=== PATIENT | female | born 1965 | race Caucasian/White ===

== ENCOUNTER 2020-10-21 00:01 | Inpatient (IN) | payer BC ==
[2020-10-21] MEDS ORDERED: Fentanyl 100 MCG/2 ML VIAL ONE ×3 (00:31→02:01)
[2020-10-21 01:08] LABS: ALT (SGPT) 63 U/L (8-55); AST (SGOT) 139 U/L (5-34); Albumin 4.7 g/dL (3.5-5.0); Alkaline Phosphatase 51 U/L (40-110); Anion Gap 26 mmol/L (10-20); BUN (Urea Nitrogen) 10 mg/dL (9.8-20.1); Bilirubin, Total 0.5 mg/dL (0.2-1.2); Calc. Creatinine Clearance 0 mL/min (70-130); Calcium 10.3 mg/dL (7.8-10.44); Carbon Dioxide 21 mmol/L (22-29); Chloride 95 mmol/L (98-107); Glucose 90 mg/dL (70-105); Potassium 3.8 mmol/L (3.5-5.1); Protein, Total 7.7 g/dL (6.0-8.3); Sodium 138 mmol/L (136-145)
[2020-10-21 01:15] LABS: Hemoglobin 12.2 g/dL (12.0-15.5); Mean Corpuscular HGB CONC 35.1 g/dL (32.0-36.0); Mean Corpuscular Hemoglobin 36.3 pg (27.0-33.0); Mean Corpuscular Volume 103.6 fl (81.6-98.3); Mean Platelet Volume 10.2 fl (7.4-10.4); Platelet Count 182 10x3/uL (150-450); RBC Distribution Width 12.6 % (11.5-14.5); Red Blood Cell (RBC) Count 3.36 10x6/uL (3.90-5.03); White Blood Cell (WBC) Count 7.7 10x3/uL (3.5-10.5)
[2020-10-21 01:39] LABS: Acetaminophen Less than 6.0 mcg/mL (10.0-30.0); Salicylate Less than 8.0 mg/dL (15.0-30.0)
[2020-10-21 01:43] LABS: Alcohol 409 mg/dL (Less than 10)
[2020-10-21 01:47] LABS: Band 3 % (5-11); Eosinophils 5 % (0-10); Lymphocytes 32 % (21-51); Monocytes 9 % (0-10); Reactive Lymphocytes 7 % (0-10)
[2020-10-21 01:48] LABS: Neutrophil 44 % (42-75)
[2020-10-21 01:49] LABS: Platelet Morphology Comment Appears Adequate
[2020-10-21 01:50] LABS: MDiff Complete? YES; Manual Diff?? YES
[2020-10-21 01:51] LABS: Macrocytosis MODERATE=16-30 cells (100X) (0-5/hpf)
[2020-10-21 01:52] LABS: Anisocytosis SLIGHT = 6-15 cells (100X) (0-5/hpf)
[2020-10-21] MEDS ORDERED: Senokot S 8.6-50 MG TAB PO PRN (02:20)
[2020-10-21] MEDS ORDERED: Calcium Carbonate 500 MG ChewTAB PO PRN (02:20)
[2020-10-21] MEDS ORDERED: Morphine 4 MG/ML VIAL SLOW IVP PRN (03:01)
[2020-10-21 03:19] LABS: SARS-CoV-2 NAA Rapid Test Not Detected (NotDetected)
[2020-10-21 03:56] VITALS: BMI 21.2
[2020-10-21] MEDS ORDERED: Multivitamins, Adult 10 ML, Folic Acid 1 MG in Dextrose 5 %-0.45 % NaCl 1,000 ML IV SCH (04:00)
[2020-10-21] MEDS ORDERED: Thiamine HCl 200 MG/2 ML VIAL SLOW IVP SCH (04:00)
[2020-10-21] MEDS: Lactated Ringer's 1,000 ML IV SCH ×3 (04:03→18:39)
[2020-10-21] MEDS: Morphine 4 MG/ML VIAL SLOW IVP PRN ×5 (04:04→22:38)
[2020-10-21] MEDS ORDERED: Thiamine HCl 200 MG/2 ML VIAL ONE (04:31)
[2020-10-21] MEDS ORDERED: Multivit, Adult Inj 10 ML VIAL ONE (04:32)
[2020-10-21] MEDS: Calcium Carbonate 500 MG ChewTAB PO SCH (08:19)
[2020-10-21] MEDS: Cholecalciferol 1,000 UNITS (25 MCG) TAB PO SCH (08:20)
[2020-10-21] MEDS: Famotidine/PF 20 mg/2ml Vial SLOW IVP SCH ×2 (08:20→20:15)
[2020-10-21 08:21] LABS: #Eosinphils 0.1 10x3/uL (0.0-0.5); #Monocytes 0.6 10x3/uL (0.0-1.1); #Neutrophils 3.7 10x3/uL (1.5-8.4); %Basophils 0.6 % (0.0-2.0); %Eosinophils 1.5 % (0.0-6.0); %Lymphocytes 34.3 % (18.0-47.0); %Monocytes 9.4 % (0.0-10.0); %Neutrophils 53.8 % (40.0-75.0); Hemoglobin 9.4 g/dL (12.0-15.5); Mean Corpuscular HGB CONC 33.9 g/dL (32.0-36.0); Mean Corpuscular Hemoglobin 36.2 pg (27.0-33.0); Mean Corpuscular Volume 106.5 fl (81.6-98.3); Mean Platelet Volume 9.6 fl (7.4-10.4); Platelet Count 129 10x3/uL (150-450); RBC Distribution Width 12.8 % (11.5-14.5); White Blood Cell (WBC) Count 6.8 10x3/uL (3.5-10.5)
[2020-10-21] MEDS: Enoxaparin Sodium 40 MG/0.4 ML SYRINGE SC SCH (08:21)
[2020-10-21 08:36] LABS: ALT (SGPT) 48 U/L (8-55); AST (SGOT) 94 U/L (5-34); Albumin 3.7 g/dL (3.5-5.0); Alcohol 232 mg/dL (Less than 10); Alkaline Phosphatase 42 U/L (40-110); Anion Gap 21 mmol/L (10-20); BUN (Urea Nitrogen) 7 mg/dL (9.8-20.1); Bilirubin, Total 0.5 mg/dL (0.2-1.2); CK (CPK) 107 U/L (29-168); Calc. Creatinine Clearance 97 mL/min (70-130); Calcium 8.8 mg/dL (7.8-10.44); Carbon Dioxide 22 mmol/L (22-29); Chloride 102 mmol/L (98-107); Globulin 2.1 g/dL (2.4-3.5); Glucose 114 mg/dL (70-105); Potassium 3.8 mmol/L (3.5-5.1); Protein, Total 5.8 g/dL (6.0-8.3); Sodium 141 mmol/L (136-145)
[2020-10-21 09:08] LABS: Magnesium 0.8 mg/dL (1.6-2.6)
[2020-10-21 09:12] LABS: Macrocytosis SLIGHT = 6-15 cells (100X) (0-5/hpf); Platelet Morphology Comment Appears Decreased
[2020-10-21] MEDS ORDERED: CEFAZOLIN 2 GM in Premix Bag 1 BAG IVPB SCH (09:15)
[2020-10-21] MEDS: Magnesium 2 GM/50 ML 2 GM in Premix Bag 1 BAG IVPB SCH ×2 (11:46→13:57)
[2020-10-21 17:35] LABS: Vitamin D, 25 Hydroxy 48.8 ng/ml (> 30.0)
[2020-10-21] MEDS: Lorazepam 2 MG/ML VIAL SLOW IVP PRN (19:43)
[2020-10-21] MEDS: Ondansetron PF 4 MG/2 ML Vial IVP PRN (22:44)
[2020-10-22] MEDS: Lactated Ringer's 1,000 ML IV SCH ×3 (02:27→18:31)
[2020-10-22] MEDS: Multivitamins, Adult 10 ML, Folic Acid 1 MG, Thiamine HCl 100 MG in Dextrose 5 %-0.45 %... IV SCH (05:04)
[2020-10-22] MEDS: Morphine 4 MG/ML VIAL SLOW IVP PRN ×4 (05:05→19:37)
[2020-10-22 05:52] LABS: Anion Gap 21 mmol/L (10-20); Globulin 2.2 g/dL (2.4-3.5)
[2020-10-22 05:56] LABS: #Eosinphils 0.1 10x3/uL (0.0-0.5); #Monocytes 0.4 10x3/uL (0.0-1.1); #Neutrophils 2.7 10x3/uL (1.5-8.4); %Basophils 0.7 % (0.0-2.0); %Eosinophils 2.7 % (0.0-6.0); %Monocytes 9.2 % (0.0-10.0); %Neutrophils 61.2 % (40.0-75.0); Hemoglobin 9.4 g/dL (12.0-15.5); Mean Corpuscular HGB CONC 34.2 g/dL (32.0-36.0); Mean Corpuscular Volume 108.3 fl (81.6-98.3); Mean Platelet Volume 10.7 fl (7.4-10.4); Platelet Count 113 10x3/uL (150-450); RBC Distribution Width 12.8 % (11.5-14.5); Red Blood Cell (RBC) Count 2.54 10x6/uL (3.90-5.03); White Blood Cell (WBC) Count 4.5 10x3/uL (3.5-10.5)
[2020-10-22 06:00] LABS: ALT (SGPT) 40 U/L (8-55); AST (SGOT) 69 U/L (5-34); Albumin 3.8 g/dL (3.5-5.0); Alkaline Phosphatase 44 U/L (40-110); BUN (Urea Nitrogen) 6 mg/dL (9.8-20.1); Bilirubin, Total 0.9 mg/dL (0.2-1.2); Calc. Creatinine Clearance 82 mL/min (70-130); Calcium 8.7 mg/dL (7.8-10.44); Carbon Dioxide 21 mmol/L (22-29); Chloride 97 mmol/L (98-107); Glucose 97 mg/dL (70-105); Magnesium 1.1 mg/dL (1.6-2.6); Sodium 135 mmol/L (136-145)
[2020-10-22] MEDS: Calcium Carbonate 500 MG ChewTAB PO SCH (10:24)
[2020-10-22] MEDS: Famotidine/PF 20 mg/2ml Vial SLOW IVP SCH ×2 (10:24→21:10)
[2020-10-22] MEDS: Cholecalciferol 1,000 UNITS (25 MCG) TAB PO SCH (10:24)
[2020-10-22] MEDS ORDERED: Magnesium 2 GM/50 ML 2 GM in Premix Bag 1 BAG IVPB SCH (11:00)
[2020-10-22] MEDS ORDERED: Dexamethasone 20 MG/5 ML VIAL ONE (15:42)
[2020-10-22] MEDS ORDERED: Fentanyl 100 MCG/2 ML VIAL ONE (15:42)
[2020-10-22] MEDS ORDERED: PROPOFOL 20 ML ONE (15:42)
[2020-10-22] MEDS ORDERED: Lidocaine 1% PF 5 ML VIAL ONE (15:42)
[2020-10-22] MEDS ORDERED: Ondansetron PF 4 MG/2 ML Vial ONE (15:42)
[2020-10-22] MEDS ORDERED: Rocuronium Bromide 10 MG/ML (10ML VIAL) ONE (15:42)
[2020-10-22] MEDS ORDERED: CEFAZOLIN 1 GM VIAL ONE (16:09)
[2020-10-22] MEDS ORDERED: Midazolam HCl 2 mg/2 ml Vial ONE (16:23)
[2020-10-22] MEDS ORDERED: Glycopyrrolate 0.2 MG/ML 5 ML SYRINGE ONE (16:38)
[2020-10-22] MEDS ORDERED: SUGAMMADEX SODIUM 500 MG/5 ML VIAL ONE (17:00)
[2020-10-22] MEDS: CEFAZOLIN 2 GM in Premix Bag 1 BAG IVPB SCH (21:19)
[2020-10-23] MEDS: Lorazepam 2 MG/ML VIAL SLOW IVP PRN ×2 (03:05→23:32)
[2020-10-23] MEDS: Multivitamins, Adult 10 ML, Folic Acid 1 MG, Thiamine HCl 100 MG in Dextrose 5 %-0.45 %... IV SCH (03:08)
[2020-10-23] MEDS: Lactated Ringer's 1,000 ML IV SCH ×3 (04:30→20:02)
[2020-10-23] MEDS ORDERED: Lorazepam 2 MG/ML VIAL SLOW IVP SCH (05:00)
[2020-10-23] MEDS: CEFAZOLIN 2 GM in Premix Bag 1 BAG IVPB SCH (05:50)
[2020-10-23] MEDS: Cholecalciferol 1,000 UNITS (25 MCG) TAB PO SCH (08:59)
[2020-10-23] MEDS: Calcium Carbonate 500 MG ChewTAB PO SCH (08:59)
[2020-10-23] MEDS: Morphine 4 MG/ML VIAL SLOW IVP PRN (09:00)
[2020-10-23] MEDS: Famotidine/PF 20 mg/2ml Vial SLOW IVP SCH ×2 (09:00→20:38)
[2020-10-23] MEDS ORDERED: traMADol HCl 50 MG TAB PO PRN (17:02)
[2020-10-24] MEDS: Lactated Ringer's 1,000 ML IV SCH ×2 (07:49→13:00)
[2020-10-24] MEDS: Cholecalciferol 1,000 UNITS (25 MCG) TAB PO SCH (09:04)
[2020-10-24] MEDS: Calcium Carbonate 500 MG ChewTAB PO SCH (09:04)
[2020-10-24] MEDS: Famotidine/PF 20 mg/2ml Vial SLOW IVP SCH ×2 (09:04→23:26)
[2020-10-24] MEDS: Enoxaparin Sodium 40 MG/0.4 ML SYRINGE SC SCH (09:05)
[2020-10-24] MEDS: Acetaminophen 325 MG TAB PO PRN ×2 (10:39→23:27)
[2020-10-24 12:02] LABS: Anion Gap 12 mmol/L (10-20); BUN (Urea Nitrogen) 4 mg/dL (9.8-20.1); Calc. Creatinine Clearance 107 mL/min (70-130); Calcium 8.8 mg/dL (7.8-10.44); Carbon Dioxide 29 mmol/L (22-29); Chloride 99 mmol/L (98-107); Glucose 96 mg/dL (70-105); Potassium 3.2 mmol/L (3.5-5.1); Sodium 137 mmol/L (136-145)
[2020-10-24 12:10] LABS: Magnesium 0.9 mg/dL (1.6-2.6)
[2020-10-24] MEDS ORDERED: Potassium Chloride 20 MEQ TAB PO SCH (12:45)
[2020-10-24] MEDS ORDERED: Magnesium Sulfate 3 GM in Sodium Chloride 0.9% 100 ML IVPB SCH (13:00)
[2020-10-25] MEDS: Lactated Ringer's 1,000 ML IV SCH ×3 (02:03→12:32)
[2020-10-25 06:05] LABS: Anion Gap 13 mmol/L (10-20); BUN (Urea Nitrogen) Less than 4 mg/dL (9.8-20.1); Calc. Creatinine Clearance 107 mL/min (70-130); Calcium 8.7 mg/dL (7.8-10.44); Carbon Dioxide 26 mmol/L (22-29); Chloride 105 mmol/L (98-107); Glucose 97 mg/dL (70-105); Magnesium 1.2 mg/dL (1.6-2.6); Potassium 3.6 mmol/L (3.5-5.1); Sodium 140 mmol/L (136-145)
[2020-10-25] MEDS: Cholecalciferol 1,000 UNITS (25 MCG) TAB PO SCH (08:55)
[2020-10-25] MEDS: Ondansetron PF 4 MG/2 ML Vial IVP PRN (08:55)
[2020-10-25] MEDS: Famotidine/PF 20 mg/2ml Vial SLOW IVP SCH ×2 (08:55→20:08)
[2020-10-25] MEDS: Calcium Carbonate 500 MG ChewTAB PO SCH (08:56)
[2020-10-25] MEDS: Acetaminophen 325 MG TAB PO PRN ×3 (08:56→20:08)
[2020-10-25] MEDS: Enoxaparin Sodium 40 MG/0.4 ML SYRINGE SC SCH (08:57)
[2020-10-26] MEDS: Cholecalciferol 1,000 UNITS (25 MCG) TAB PO SCH (10:01)
[2020-10-26] MEDS: Calcium Carbonate 500 MG ChewTAB PO SCH (10:05)
[2020-10-26] MEDS: Famotidine/PF 20 mg/2ml Vial SLOW IVP SCH (10:05)
[2020-10-26] MEDS: Enoxaparin Sodium 40 MG/0.4 ML SYRINGE SC SCH (10:05)
[2020-10-26 12:22] VITALS: BP 117/78; TEMP 99.2
== END 2020-10-26 14:36 | disposition home health service (06) | DRG 481 ==
LOC: CSHERS 00:01 → CSHTELE 02:20
PROVIDERS: ADMIT Student in an Organized Health Care Education/Training Program; ATTEND Internal Medicine
PROC: 0QS706Z Reposition Left Upper Femur with Intramedullary Internal Fixation Device, Open Approach (ICD-10-PCS; principal; 2020-10-22)
DX: S72.145A Nondisplaced intertrochanteric fracture of left femur, initial encounter for closed fracture (principal); E87.2 Acidosis; F10.221 Alcohol dependence with intoxication delirium; W19.XXXA Unspecified fall, initial encounter; Y93.9 Activity, unspecified; Y92.022 Bathroom in mobile home as the place of occurrence of the external cause; Z20.822 Contact with and (suspected) exposure to COVID-19; F41.9 Anxiety disorder, unspecified; F32.9 Major depressive disorder, single episode, unspecified; Y90.8 Blood alcohol level of 240 mg/100 ml or more; R79.89 Other specified abnormal findings of blood chemistry; R94.31 Abnormal electrocardiogram [ECG] [EKG]; D53.9 Nutritional anemia, unspecified
CPT/HCPCS: 36415; 71045; 76000; 80048; 80053; 80307; 82306; 82550; 82607; 82746; 83735; 85025; 86850; 86900; 86901; 93005; 96374; 96376; C1713; J0690; J1100; J1650; J2060; J2250; J2270; J2405; J2704; J3010; J3411; J3475; J3490; J7042; J7120; S0028; U0002

== ENCOUNTER 2022-02-19 13:40 | Outpatient (CLI) | payer BC | END 2022-02-19 13:41 | disposition home or self-care (01) | LOC: CSHMAMMO 13:40 | PROVIDERS: ATTEND Obstetrics & Gynecology | DX: Z12.31 Encounter for screening mammogram for malignant neoplasm of breast (principal); Z98.82 Breast implant status | CPT/HCPCS: 77063; 77067 ==

== ENCOUNTER 2023-02-27 12:47 | Outpatient (CLI) | payer BC | END 2023-02-27 12:48 | disposition home or self-care (01) | LOC: CSHMAMMO 12:47 | PROVIDERS: ATTEND Obstetrics & Gynecology | DX: Z12.31 Encounter for screening mammogram for malignant neoplasm of breast (principal); Z98.82 Breast implant status | CPT/HCPCS: 77063; 77067 ==